=== PATIENT | male | born 1995 | race Caucasian/White ===

== ENCOUNTER 2020-10-18 15:14 | Emergency (ER) | payer BC ==
[~2020-10-18] VITALS: Ht 172.7 cm; Wt 83.9 kg
[2020-10-18 15:15] VITALS: BP_SYST 139
--- NOTE | 2020-10-18 15:15 | NUR ---
TRIAGED IN OUTSIDE TENT, PLACED IN WHEELCHAIR AND BROUGHT BACK TO BED #8. REPORT GIVEN TO MAGUI
--- NOTE | 2020-10-18 15:17 | NUR ---
DR SERRA IN TENT EVALUATING PT.
--- NOTE | 2020-10-18 15:25 | NUR ---
PT MOVED TO BED 8
--- NOTE | 2020-10-18 15:30 | NUR ---
PT STATES HE AND HIS GIRLFRIEND WERE [place]ING [place], HE BECAME NAUSEATED AND VOMITED MULTIPLE TIMES. PT STATES HE STARTED PANICKING AND HYPERVENTILATING, HANDS WENT NUMB. PT STATES COLD SWEATS RECENTLY WITH LOW GRADE FEVERS PER GIRLFRINED. PT STATES HE HAS NEVER BEEN THIS SICK EVER. STATES HE LAST SMOKED POT TODAY.
--- NOTE | 2020-10-18 15:30 | NUR ---
PT. BIB GIRLFRIEND A&Ox3 PT. WAS DRIVING IN CAR WITH FRIEND UP [address] AND BEGAN TO FEEL WEAK DIZZY AND NAUSEOUS IN THE CAR AND BEGAN VOMITINGx4 DENIES CHEST PAIN AND SOB PT. HAS NO COMPLAINT OF PAIN . PT. AMBULATED FROM WHEEL CHAIR TO GURNEY WITHOUT ASSISTANCE AND TOLERATED WELL. PT. HAS A HISTORY OF ANXIETY AND NO KNOWN ALLERGIES PT. PLACED ON MONITOR IN BED IN LOWEST POSITION PT. VITALS SIGNS WITHIN NORMAL LIMITS
--- NOTE | 2020-10-18 15:33 | NUR ---
Blood for labwork drawn from 20G RIGHT AC. Patient tolerated WELL
[2020-10-18] MEDS ORDERED: NACL 0.9% 1,000 ML IV ONE (15:45)
[2020-10-18] MEDS ORDERED: ONDANSETRON HCL 4 MG/2 ML VIAL IVP ONE (15:45)
--- NOTE | 2020-10-18 15:54 | NUR ---
BLESSING Hollingsworth at bedside examining patient.
[2020-10-18 16:01] LABS: BASOPHILS % (AUTO) 0.4 % (0.0-2.0); EOSINOPHILS % (AUTO) 0.1 % (0.0-4.0); HEMATOCRIT 48.2 % (36-54); HEMOGLOBIN 15.9 g/dL (14.0-18.0); LYMPHOCYTES # (AUTO) 0.9 K/uL (1.0-5.5); MEAN CORPUSCULAR HEMOGLOBIN 31 pg (27-31); MEAN CORPUSCULAR HGB CONC 33 % (32-36); MEAN CORPUSCULAR VOLUME 92 fL (79.0-98.0); MONOCYTES # (AUTO) 0.7 K/uL (0.0-1.0); MONOCYTES % (AUTO) 10.5 % (1.7-9.3); NEUTROPHILS # (AUTO) 4.9 K/uL (1.8-7.7); PLATELET COUNT (AUTO) 161 K/uL (130-430); RED BLOOD CELL COUNT(AUTO) 5.23 MIL/uL (4.2-6.2); RED CELL DISTRIBUTION WIDTH 13.3 % (9.0-15.0); WHITE BLOOD COUNT (AUTO) 6.5 K/uL (4.8-10.8)
--- NOTE | 2020-10-18 16:04 | NUR ---
Medicated per MD SERRAorders. IVF BOLUS infusing with no s/s of infiltration at this time. Will cont to monitor
[2020-10-18 16:06] LABS: ANION GAP 16 (5-15); CALCIUM 9.1 mg/dL (8.4-11.0); CHLORIDE 101 mmol/L (98-107); CREATININE 1.22 mg/dL (0.55-1.30); GLUCOSE 145 mg/dL (70-99); POTASSIUM 3.3 mmol/L (3.5-5.1); SODIUM SERUM 140 mmol/L (136-145); UREA NITROGEN, BLOOD 12 mg/dL (8-21)
[2020-10-18 16:07] LABS: GFR AFRICAN AMERICAN 93 mL/min (>90)
[2020-10-18 16:14] LABS: ALANINE AMINOTRANSFERASE 14 U/L (12-78); ALBUMIN 4.6 g/dL (3.4-4.8); ASPARTATE AMINOTRANSFERASE 17 U/L (10-37); LIPASE 59 U/L (73-393); TOTAL BILIRUBIN 0.4 mg/dL (0.0-1.0)
--- NOTE | 2020-10-18 17:05 | NUR ---
Urine specimen collected and analyzed in ER. Results given to ER MD SERRA
--- NOTE | 2020-10-18 17:32 | NUR ---
COVID PCR SWAB PEFORMED AT BEDSIDE AND SENT TO LAB PT. TOLERATED WELL
[2020-10-18 17:45] VITALS: BP_SYST 147
--- NOTE | 2020-10-18 17:45 | NUR ---
Patient given written and verbal discharge instructions and verbalizes understanding. ER MD SERRA discussed with patient the results and treatment provided. Patient in stable condition. ID arm band removed. IV catheter removed intact and dressing applied, no active bleeding. Patient educated on pain management and to follow up with PMD. Pain Scale 0/10. Opportunity for questions provided and answered. Medication side effect fact sheet provided.
== END 2020-10-18 17:45 | disposition home or self-care (01) ==
LOC: SED 15:14
DX: U07.1 COVID-19 (principal); R11.10 Vomiting, unspecified; F12.90 Cannabis use, unspecified, uncomplicated
CPT/HCPCS: 36415; 71045; 80053; 81002; 83690; 84484; 85025; 93005; 96374; 99285; C9803; J2405; J7030; U0003

== ENCOUNTER 2021-07-25 11:04 | Emergency (ER) | payer SELFPAY ==
[~2021-07-25] VITALS: Ht 175.3 cm; Wt 75.7 kg
[2021-07-25 11:18] VITALS: BP_SYST 133
--- NOTE | 2021-07-25 11:27 | NUR ---
Patient to ER bed 3 to gown for evaluation. Side rails up. Report given to Hugo amador.
--- NOTE | 2021-07-25 11:30 | NUR ---
Pt came into ER with complaint of generalized abdominal pain 08/22 Xtoday. Pt denies N/V/D. Pt reports he smokes weed everyday and the only thing that helps the pain is a warm shower. Pt AAOX4 speaking full sentences. Breathing even and unlabored.
--- NOTE | 2021-07-25 11:34 | NUR ---
ER at bedside examining patient.
--- NOTE | 2021-07-25 11:36 | NUR ---
Pt ambulated to restroom independently gait is steady and straight. VSS.
[2021-07-25] MEDS ORDERED: HALOPERIDOL LACTATE 5 MG/ML VIAL IM ONE (11:45)
--- NOTE | 2021-07-25 11:50 | NUR ---
Lab at bedside.
--- NOTE | 2021-07-25 11:53 | NUR ---
Urine collected and sent to lab.
[2021-07-25 12:03] LABS: BASOPHILS # (AUTO) 0.1 K/uL (0.0-0.2); BASOPHILS % (AUTO) 0.4 % (0.0-2.0); EOSINOPHILS % (AUTO) 0.1 % (0.0-4.0); HEMATOCRIT 46.6 % (36-54); HEMOGLOBIN 15.9 g/dL (14.0-18.0); LYMPHOCYTES # (AUTO) 1.6 K/uL (1.0-5.5); MEAN CORPUSCULAR HEMOGLOBIN 32 pg (27-31); MEAN CORPUSCULAR HGB CONC 34 % (32-36); MEAN CORPUSCULAR VOLUME 92 fL (79.0-98.0); MONOCYTES # (AUTO) 0.7 K/uL (0.0-1.0); MONOCYTES % (AUTO) 4.2 % (1.7-9.3); NEUTROPHILS # (AUTO) 13.9 K/uL (1.8-7.7); NEUTROPHILS % (AUTO) 85.3 % (40.0-70.0); PLATELET COUNT (AUTO) 242 K/uL (130-430); RED BLOOD CELL COUNT(AUTO) 5.05 MIL/uL (4.2-6.2); RED CELL DISTRIBUTION WIDTH 13.7 % (9.0-15.0); WHITE BLOOD COUNT (AUTO) 16.4 K/uL (4.8-10.8)
--- NOTE | 2021-07-25 12:10 | NUR ---
Patient transported to radiology via gurney, accompanied by abdirahman.
[2021-07-25 12:20] LABS: ANION GAP 15 (5-15); CALCIUM 9.7 mg/dL (8.4-11.0); CHLORIDE 101 mmol/L (98-107); CREATININE 1.26 mg/dL (0.55-1.30); GLUCOSE 155 mg/dL (70-99); POTASSIUM 3.5 mmol/L (3.5-5.1); SODIUM SERUM 140 mmol/L (136-145); UREA NITROGEN, BLOOD 15 mg/dL (8-21)
[2021-07-25 12:24] LABS: ALANINE AMINOTRANSFERASE 30 U/L (12-78); ALBUMIN 4.7 g/dL (3.4-4.8); AMYLASE 58 U/L (0-100); ASPARTATE AMINOTRANSFERASE 18 U/L (10-37); LIPASE 67 U/L (73-393); TOTAL BILIRUBIN 1.2 mg/dL (0.0-1.0)
[2021-07-25 12:27] LABS: C-REACTIVE PROTEIN QUANT < 0.2 mg/dL (0-0.5); GFR AFRICAN AMERICAN 90 mL/min (>90); PROTHROMBIN TIME 10.4 SECS (9.5-12.5)
--- NOTE | 2021-07-25 12:27 | NUR ---
Back from CT.
[2021-07-25] MEDS ORDERED: IBUP-1971 PO (13:33)
[2021-07-25] MEDS ORDERED: HYDR-3917 PO (13:33)
[2021-07-25 13:36] LABS: BILIRUBIN,URINE NEGATIVE (NEGATIVE); BLOOD, URINE 3+ (NEGATIVE); CLARITY/URINE SL CLOUDY (CLEAR); COLOR,URINE YELLOW (YELLOW); GLUCOSE,URINE NEGATIVE (NEGATIVE); KETONES,URINE 3+ (NEGATIVE); LEUKOCYTE ESTERASE ,URINE NEGATIVE (NEGATIVE); NITRITE, URINE NEGATIVE (NEGATIVE); PROTEIN URINE 1+ (NEGATIVE); UROBILINOGEN,URINE 0.2 (0.2-1.0)
[2021-07-25] MEDS ORDERED: HYDROcodone/ACETAMIN 5-325 MG TAB (NORCO/ VICODIN) PO ONE (13:45)
[2021-07-25] MEDS ORDERED: IBUPROFEN 800 MG TABLET PO ONE (13:45)
[2021-07-25 13:54] LABS: BACTERIA,URINE FEW /HPF (None Seen); WBC,URINE 0-3 /HPF (0-3)
--- NOTE | 2021-07-25 14:02 | NUR ---
Dr. Troy at bedside speaking with pt.
[2021-07-25 14:04] VITALS: BP_SYST 133
--- NOTE | 2021-07-25 14:05 | NUR ---
Patient given written and verbal discharge instructions and verbalizes understanding. ER MD discussed with patient the results and treatment provided. Patient in stable condition. ID arm band removed. Rx of [place] and motrin given. Patient educated on pain management and to follow up with PMD. Pain Scale 0/10. Opportunity for questions provided and answered. Medication side effect fact sheet provided.
== END 2021-07-25 14:05 | disposition home or self-care (01) ==
LOC: SED 11:04
DX: N23 Unspecified renal colic (principal); F12.988 Cannabis use, unspecified with other cannabis-induced disorder; K31.84 Gastroparesis; Z79.899 Other long term (current) drug therapy
CPT/HCPCS: 36415; 74176; 76376; 80053; 81000; 82150; 83605; 83690; 85025; 85610; 85730; 86140; 96372; 99284; J1630